=== PATIENT | male | born 1975 | race Caucasian/White ===

== ENCOUNTER 2016-07-17 14:11 | Emergency (ER) | payer MEDICAID, OTHER ==
[~2016-07-17] VITALS: Ht 167.6 cm; Wt 90.0 kg
[2016-07-17 14:17] VITALS: Ht 167.6 cm; Wt 90.0 kg
[2016-07-17] MEDS ORDERED: ONDANSETRON 4 MG INJ IV STA (16:13)
[2016-07-17] MEDS ORDERED: SOD CHLORIDE 0.9% 1,000 ML IV ONE (16:30)
[2016-07-17 17:03] LABS: ADD SCAN DIFF NO
[2016-07-17 17:04] LABS: BASOPHIL # 0.1 10^3/ul (0.0-0.1); BASOPHILS % 0.8 % (0.0-2.0); EOSINOPHILS # 0.5 10^3/ul (0.0-0.5); HEMATOCRIT 48.7 % (42.0-52.0); HEMOGLOBIN 15.4 g/dl (14.0-18.0); LYMPHOCYTES % 22.6 % (15.0-51.0); MEAN CORPUSCULAR HGB CONC 31.6 g/dl (32.0-37.0); MEAN CORPUSCULAR VOLUME 79.2 fl (82.0-101.0); MEAN PLATELET VOLUME 9.3 fl (7.4-10.4); MONOCYTE # 0.4 10^3/ul (0.3-0.9); MONOCYTES % 4.3 % (0.0-11.0); NEUTROPHIL # 5.7 10^3/ul (1.6-7.5); NEUTROPHILS % 65.6 % (39.0-77.0); PLATELET COUNT 339 10^3/UL (140-415); RED BLOOD COUNT 6.15 10^6/ul (4.70-6.10); RED CELL DISTRIBUTION WIDTH 14.6 % (11.5-14.5); WHITE BLOOD COUNT 8.7 10^3/ul (4.8-10.8)
[2016-07-17 17:25] LABS: ALBUMIN 3.9 g/dl (3.3-4.9)
[2016-07-17 17:26] LABS: POTASSIUM 3.7 mmol/L (3.5-5.1)
[2016-07-17 17:28] LABS: BILIRUBIN,INDIRECT 0.4 mg/dl (0-1.1); BILIRUBIN,TOTAL 0.4 mg/dl (0.2-1.3); CREATININE 0.73 mg/dl (0.61-1.24)
[2016-07-17 17:29] LABS: ALBUMIN/GLOBULIN RATIO 1.25; CALCIUM 9.1 mg/dl (8.4-10.2)
[2016-07-17] MEDS ORDERED: MECL12.574 PO (17:49)
[2016-07-17] MEDS ORDERED: ONDA4TAB8 PO (17:50)
[2016-07-17 17:59] VITALS: BP 132/67; PULSE 76; RESP 18; TEMP 97.9
--- NOTE | 2016-07-17 18:01 | ERD ---
ER Documentation Chief Complaint Date/Time DATE: 07/17/16 TIME: 17:54 Chief Complaint felt skakes,no incontinence,no seizure activity HPI Patient is a 41-year-old male who presents to the ED with an episode of dizziness that happened at 3 AM this morning. He states that he woke up and felt dizzy with body shivers. He denies passing out, losing consciousness. Denies a history of seizures. Denies vomiting, bowel or bladder incontinence. Denies blurry vision, difficulty seeing or hearing. He states that this has happened in the past, 6 years ago. He states that every day he uses a drill hammer at work and says that it could be associated with this. He denies abdominal pain, vomiting, diarrhea, constipation or headaches but states that he does feel a little nauseous. He has not taken any medication for his symptoms. He denies headache. He states that he is not currently dizzy. Denies leg pain or swelling. Denies chest pain, shortness of breath or difficulty breathing or cough. No other complaints. ROS All systems reviewed and are negative except as per history of present illness. Medications Home Meds Active Scripts Ondansetron Hcl* (Zofran*) 4 Mg Tablet, 4 MG PO Q6H for NAUSEA AND/OR VOMITING, #30 TAB Prov:FRANCIS CAMPOVERDE PA-C 07/17/16 Meclizine Hcl* (Antivert*) 12.5 Mg Tab, 12.5 MG PO Q6H Y for DIZZINESS, #20 TAB Prov:FRANCIS CAMPOVERDE PA-C 07/17/16 PMhx/Soc Medical and Surgical Hx: pt denies Medical Hx, pt denies Surgical Hx History of Surgery: No Anesthesia Reaction: No Hx Neurological Disorder: No Hx Respiratory Disorders: No Hx Cardiac Disorders: No Hx Psychiatric Problems: No Hx Miscellaneous Medical Probl: No Hx Alcohol Use: Yes (once a week has 5 beers) Hx Substance Use: No Hx Tobacco Use: No Smoking Status: Never smoker FmHx Family History: No coronary disease, No diabetes, No other Physical Exam Vitals Vital Signs Date Time Temp Pulse Resp B/P Pulse Ox O2 Delivery O2 Flow Rate FiO2 07/17/16 17:59 97.9 76 18 132/67 99 Room Air 07/17/16 14:17 98.1 77 18 144/89 99 Physical Exam GENERAL: Well-developed, well-nourished male. Appears in no acute distress. HEAD: Normocephalic, atraumatic. EYES: Pupils are equally reactive bilaterally. EOMs grossly intact. No conjunctival erythema. No nystagmus ENT: Moist mucous membranes. No uvula deviation. No kissing tonsils. No exudates. NECK: Supple. No lymphadenopathy or thyromegaly. No meningismus. negative kernig. negative brudinski. LUNG: Clear to auscultation bilaterally. No rhonchi, wheezing, rales or coarse breath sounds. HEART: Regular rate and rhythm. No murmurs, rubs or gallops. ABDOMEN: No scars, ecchymosis or rashes noted. Soft, nontender, and nondistended. Positive bowel sounds in all four quadrants. No rebound tenderness , no guarding. (-) McBurneys point tenderness. No CVA tenderness. BACK: No midline tenderness. Extremities: Equal pulses bilaterally. No peripheral clubbing, cyanosis or edema. No unilateral leg swelling. NEUROLOGIC: Alert and oriented. Moving all four extremities. 5/5 strength in all extremities. Normal speech. Steady gait. Negative ataxia. Negative Romberg test. Cranial nerves II through XII intact. SKIN: Normal color. Warm and dry. No rashes or lesions. Capillary refill < 2 seconds Result Diagram: 07/17/16 1640 07/17/16 1640 Results 24 hrs Laboratory Tests Test 07/17/16 16:40 White Blood Count 8.710^3/ul Red Blood Count 6.1510^6/ul Hemoglobin 15.4g/dl Hematocrit 48.7% Mean Corpuscular Volume 79.2fl Mean Corpuscular Hemoglobin 25.0pg Mean Corpuscular Hemoglobin Concent 31.6g/dl Red Cell Distribution Width 14.6% Platelet Count 57030^3/UL Mean Platelet Volume 9.3fl Neutrophils % 65.6% Lymphocytes % 22.6% Monocytes % 4.3% Eosinophils % 6.0% Basophils % 0.8% Nucleated Red Blood Cells % 0.0/100WBC Neutrophils # 5.710^3/ul Lymphocytes # 2.010^3/ul Monocytes # 0.410^3/ul Eosinophils # 0.510^3/ul Basophils # 0.110^3/ul Nucleated Red Blood Cells # 0.010^3/ul Sodium Level 145mmol/L Potassium Level 3.7mmol/L Chloride Level 104mmol/L Carbon Dioxide Level 28mmol/L Anion Gap 17 Blood Urea Nitrogen 10mg/dl Creatinine 0.73mg/dl Glucose Level 102mg/dl Calcium Level 9.1mg/dl Total Bilirubin 0.4mg/dl Direct Bilirubin 0.00mg/dl Indirect Bilirubin 0.4mg/dl Aspartate Amino Transf (AST/SGOT) 27IU/L Alanine Aminotransferase (ALT/SGPT) 26IU/L Alkaline Phosphatase 66IU/L Total Protein 7.0g/dl Albumin 3.9g/dl Globulin 3.10g/dl Albumin/Globulin Ratio 1.25 Lipase 357U/L Current Medications Medications (Trade) Dose Ordered Sig/Nguyen Route PRN Reason Start Time Stop Time Status Last Admin Dose Admin Sodium Chloride (NS) 1,000 ml @ 1,000 mls/hr Q1H ONCE IV 07/17/16 16:30 07/17/16 17:29 DC 07/17/16 16:49 Ondansetron HCl (Zofran Inj) 4 mg ONCE STAT IV 07/17/16 16:13 07/17/16 16:15 DC 07/17/16 16:49 Procedures/MDM ER COURSE: I kept the patient and/or family informed of laboratory and diagnostic imaging results throughout the emergency room course. MEDICATIONS: Zofran, meclizine, fluids. Tolerated well with no adverse reaction. Stated improvement in symptoms. LAB INTERPRETATION: CBC showed no evidence of systemic infection or severe anemia. CMP showed no evidence of electrolyte abnormalities, severe acidosis, alkalosis, renal failure , or liver disease. Lipase showed no evidence of acute pancreatitis, slightly elevated to 352. MEDICAL DECISION MAKING: This is a 41-year-old male who presents with dizziness. Vital signs were reviewed. Patient is afebrile. Patient is not hypoxic. Patient is not toxic or ill-appearing. Patient likely has dizziness of unknown etiology. Low suspicion for intracranial hemorrhage, meningitis, intracranial mass, concussion , temporal arteritis, stroke, elevated intracranial pressure, seizure. I did not think a CT scan was warranted at this time as patient does not have headache , denies trauma, no injury and he cranial nerves II through XII are intact, no ataxia and a negative Romberg test. His abdominal exam was within normal limits. Low suspicion for ACS, AAA, perforated ulcer, bowel obstruction, cholecystitis, choledocholithiasis, cholangitis, pancreatitis, hepatic abscess, appendicitis, diverticulitis, gastroenteritis, hepatitis, peptic ulcer disease, HELLP syndrome, DKA. I have low suspicion for delirium tremens as he does not have a chronic history of alcohol abuse and denies use of alcohol in the last 5 days. DISCHARGE: At this time, patient is stable for discharge and outpatient management with no new complaints during the ER course. Patient was sent home with melody isaacs and copies of lab reports. Patient will be discharged home with instructions to recheck for new or worsening symptoms such as fever, nausea, weakness, LOC and to follow up with primary care in the next 1-2 days. Patient was advised to return to the ER for any new or worsening symptoms. Plan was discussed and patient and/or family understands and agrees. Home instructions were given. Departure Diagnosis: Primary Impression: Dizziness Condition: Stable Patient Instructions: Dizziness (Vertigo) and Balance Problems: Ensuring Your Safety Additional Instructions: Llame al doctor BUSTER y matthieu john MITCH PARA DENTRO DE 1-2 ROMAN.Dgale a la secretaria que nosotros le instruimos hacer esta mitch.Avise o llame si aggarwal condicin se empeora antes de la mitch. Regresa aqui si peor o no mejor. FRANCIS CAMPOVERDE PA-C Jul 17, 2016 18:01
== END 2016-07-17 17:59 | disposition home or self-care (01) ==
LOC: FTE 14:11
DX: R42 Dizziness and giddiness (principal); R11.0 Nausea
CPT/HCPCS: 80053; 83690; 85025; 96361; 96374; J2405; J7030; Z7502